=== PATIENT | male | born 1940 | race Caucasian/White ===

== ENCOUNTER → 2018-04-27 17:58 | Outpatient (CLI) | payer MEDICARE, OTHER, SELFPAY ==
--- NOTE | 2018-04-27 18:03 | DI.RAD.S_ITS ---
PROCEDURE: XR HAND RT MIN 3V INDICATIONS: Hand pain, tenderness to 5th metacarpal, proximal to MCP JOINT TECHNIQUE: 3 views of the hand(s) acquired. COMPARISON: None. FINDINGS: Bones: No dislocations. Carpal bones are normally aligned. No suspicious bony lesions. There is a fracture involving the head/neck junction of the fifth metacarpal, best seen on the oblique view, with a fracture plane extending to involve the distal diaphysis of the metacarpal. Soft tissues: No suspicious soft tissue calcifications. IMPRESSION: Acute or subacute fracture involving the fifth metacarpal head/neck junction and tracking proximally along the distal diaphysis. Mild displacement. Dictated by: Matt Rowland M.D. on 04/28/2018 at 10:08 Approved by: Matt Rowland M.D. on 04/28/2018 at 10:19
== END ==
PROVIDERS: PCP Internal Medicine Geriatric Medicine; Visit Provider Physician Assistant
DX: S62.336A Displaced fracture of neck of fifth metacarpal bone, right hand, initial encounter for closed fracture (principal); M79.641 Pain in right hand
CPT/HCPCS: 73130

== ENCOUNTER 2018-10-03 21:53 | Emergency (ER) | payer MEDICARE, OTHER, SELFPAY ==
[2018-10-03 22:05] VITALS: BP 157/90; PULSE 75; RESP 16; TEMP 37.1; O2SAT 99; BMI 24.7
--- NOTE | 2018-10-03 23:07 | PC.NURSE ---
Patient has been seeing sleep doctor since summer and was prescribed melatonin and also takes gabapentin. He recently stopped taking his gabapentin a few days ago. Also began to take over the counter Flonase and Claritin. States he has been unable to sleep for the past 72 hours.
--- NOTE | 2018-10-03 23:08 | ED.GENADULT ---
HPI - General Adult General Chief complaint: Ear Stated complaint: have not slept in 2 nights,ringing of ears Time Seen by Provider: 10/03/18 22:13 Source: patient and family Mode of arrival: ambulatory Limitations: no limitations History of Present Illness HPI narrative: 78-year-old male, nonsmoker with hypertension and hyperlipidemia presents for evaluation of insomnia and ringing in his ears. The patient has had multiple visits and evaluations which started last summer. He went to a sleep specialist in [place] and was started on gabapentin, trazodone, and melatonin. He had had some improvement in his ability to sleep and then about 1 week ago the meds seemed to stop working. He has been complaining of ringing in his ears and visited the walk-in clinic twice and cerumen removal seem to completely resolve his symptoms for a day or 2. States he has not slept in a few days. He denies any alcohol or significant caffeine. He denies any other medication additions but does state that he stopped taking his Neurontin a few days ago, or so he thinks. He denies any dietary change. He has had more stress than normal lately. He did add flonase to his regimen given some recent nasal congestion at the suggestion of his daughter. Onset (ago): month(s) Related Data Home Medications Medication Instructions Recorded Confirmed Fish Oil (#FISH OIL) 1 iu PO Q DAY #0 03/09/12 09/28/18 [VITAMIN D3] Q DAY #0 03/09/12 09/28/18 aspirin 81 mg tablet,delayed 81 mg PO DAILY 04/18/18 09/28/18 release trazodone PO 04/18/18 09/28/18 Lactobac 51-Bifidobac cap PO cap 09/26/18 09/28/18 3-L.lactis-S.thermophilus 4 billion cell capsule gabapentin 400 mg capsule 400 mg PO DAILY 09/26/18 09/28/18 melatonin 3 mg tablet 3 mg PO BEDTIME PRN 09/26/18 09/28/18 pravastatin 20 mg tablet 20 mg PO DAILY 09/26/18 09/28/18 vit C 150 mg-vit E 30 unit-lutein 1 cap PO DAILY 09/26/18 09/28/18 5 ij-rrzquqgl-xhytm 3 150 mg capsule losartan PO 09/28/18 09/28/18 Allergies Allergy/AdvReac Type Severity Reaction Status Date / Time No Known Drug Allergies Allergy Verified 09/28/18 18:01 Review of Systems Review of Systems All systems reviewed & are unremarkable except as noted in HPI and below Constitutional Denies chills, Denies fever(s), Denies lethargy and Denies weakness Eyes Denies change in vision, Denies eye discharge, Denies irritation and Denies loss of vision ENT Ears, Nose, Mouth, and Throat: Denies change in voice, Denies neck pain and Denies sore throat Comments: ringing in ears Cardiovascular Denies chest pain, Denies irregular heart rhythm, Denies lightheadedness, Denies palpitations, Denies dyspnea, Denies dyspnea on exertion and Denies orthopnea Respiratory Denies cough, Denies dyspnea, Denies dyspnea on exertion and Denies wheezing Gastrointestinal Gastrointestinal: Denies abdominal pain, Denies change in bowel habits, Denies diarrhea, Denies nausea and Denies vomiting Genitourinary Denies hematuria, Denies flank pain, Denies urinary incontinence and Denies urinary urgency Musculoskeletal Denies neck pain Integumentary/Breasts Denies pruritus, Denies erythema, Denies rash and Denies wounds Neurologic Denies confusion, Denies loss of vision and Denies weakness Psychiatric Denies anxiety, Denies confusion, Denies depression, Denies homicidal ideation and Denies suicidal ideation Endocrine Denies palpitations Hematologic/Lymphatic Denies easy bruising Allergic/Immunologic Denies wheezing PFSH Social History Smoking Status: Never smoker Exam Narrative Exam Narrative: GEN: AOx3 and in mild distress, anxious ENT: very minimal R ear cerumen in canal. No effusion. TMs B/L normal EYES: Pupils are equal, round, and reactive to light and accommodation. Extraoccular muscles are intact bilaterally. There is no subconjunctival hemorrhage or exudate. CHEST: Lungs are clear to auscultation bilaterally and free of wheezes, rales, or rhonchi. Heart rate is regular rhythm, there are no murmurs, clicks, rubs, or gallops. There is no chest wall tenderness. ABD: Abdomen is soft and nontender. There is no guarding or rebound. Bowel sounds are normal in all 4 quadrants. There is no mass or organomegaly. EXT: Full painless ROM of all extremities with no loss of sensation or strength. SKIN: Warm, pink, and dry. No erythema or rash Initial Vital Signs Initial Vital Signs: Vital Signs Temperature 98.8 F 10/03/18 22:05 Pulse Rate 75 10/03/18 22:05 Respiratory Rate 16 10/03/18 22:05 Blood Pressure 157/90 H 10/03/18 22:05 Pulse Oximetry 99 10/03/18 22:05 Course Orders Ordered: ED Orders 10/03/18 22:55 Basic Metabolic Panel Stat Complete Blood Count AUTO DIFF Stat Free T4 Free Thyroxine Stat Magnesium Stat Pathologist Review (for CBC) Stat Thyroid Stimulating Hormone Stat Vital Signs - 8 hr 10/03/18 22:05 10/04/18 00:09 Temperature 98.8 F Pulse Rate 75 68 Respiratory Rate 16 18 Blood Pressure 157/90 H 151/83 H Pulse Oximetry 99 98 Medical Decision Making Lab Data Result diagrams: 10/03/18 22:55 10/03/18 22:55 Lab Results 10/03/18 10/03/18 10/03/18 Range/Units 22:55 22:55 22:55 WBC 13.4 H (4.5-11.0) X10^3/uL RBC 5.44 (4.5-5.9) X10^6/uL Hgb 15.0 (13.5-17.5) g/dL Hct 45.9 (41-53) % MCV 84.4 (80-100) fL MCH 27.6 (26-34) PG MCHC 32.7 (30-36) % RDW 13.8 (11.6-14.8) % Plt Count 178 (150-400) X10^3/uL Neut % (Auto) Not Reportable Lymph % (Auto) Not Reportable Mckean % (Auto) Not Reportable Eos % (Auto) Not Reportable Baso % (Auto) Not Reportable Seg Neutrophils % 53.0 (38-70) % Band Neutrophils % 1.0 L (3-7) % Lymphocytes % (Manual) 26.0 (25-45) % Atypical Lymphs % 17.0 H ( - 0) % Monocytes % (Manual) 3.0 (2-11) % RBC Morphology See below Ovalocytes 1+ H Sodium 139 (137-145) mmol/L Potassium 3.9 (3.4-5.1) mmol/L Chloride 103 (98-107) mmol/L Carbon Dioxide 27 (22-32) mmol/L BUN 19 (9-20) mg/dL Creatinine 1.00 (0.66-1.25) mg/dL Estimated GFR > 60.0 (>60) mL/min BUN/Creatinine Ratio 19.0 (6-22) Glucose 122 H (80-110) mg/dL Calcium 9.5 (8.4-10.2) mg/dL Magnesium 2.2 (1.6-2.3) mg/dL TSH 0.16 L (0.47-4.68) uIU/mL Free T4 1.11 (0.78-2.19) ng/dL MDM Narrative Medical decision making narrative: likely multiple contributing factors to patients insomnia. Etiologies considered include age, possible early dementia, anxiety. It is unlikely that abrupt cessation of Neurontin a day or two ago is helping. Discussed imaging and labs that may help elucidate. Patient had an MRI in the summer as part of the workup for his tinnitus and insomnia. Additionally he and his PCP discussed stopping his ASA. We did talk about the possible cardiovascular consequences of this. In the end we discussed getting back on Neurontin and consider increasing Melatonin from 3mg to 6mg with close follow up. Discharge Plan Departure Patient Disposition: Home Clinical Impression: Insomnia, Tinnitus Discharge Date/Time: 10/04/18 00:10 Interventions: ED Discharge Assessment Last Done: 10/04/18 00:09 Instructions: DI for Insomnia, DI for Tinnitus Activity Restrictions/Additional Instructions: *You have been diagnosed with [ tinnitus, insomnia] *What to do: *Take medications as directed. Please resume taking your Gabapentin as previously prescribed. Please consider obtaining a pill organizer so as to avoid missing doses of your meds. *Follow up with your primary care provider in 2-3 days, call for an appointment. Let them know you were seen in the Emergency Department and that we ask that you be seen in follow up *Return to ER if you should have any new, worsening or concerning symptoms Prescriptions: No Action aspirin [Aspir-81] 81 mg tablet,delayed release (DR/EC) 81 mg PO DAILY RF: 0 trazodone PO RF: 0 Lacto 51-Bifid 3-L.lact-S.ther [Daily Probiotic (10 Strains)] 4 billion cell capsule PO RF: 0 pravastatin 20 mg tablet 20 mg PO DAILY RF: 0 melatonin 3 mg tablet 3 mg PO BEDTIME PRNRF: 0 vit C-vit F-ziipvw-bkg-om-3 [Ocuvite] 657-37-9-150 gq-gsxm-ku-mg capsule 1 cap PO DAILY RF: 0 gabapentin 400 mg capsule 400 mg PO DAILY RF: 0 losartan PO RF: 0 Fish Oil (#FISH OIL) 1 iu PO Q DAY Qty: 0 RF: 0 [VITAMIN D3] Q DAY Qty: 0 RF: 0 Referrals: Reece Shore MD [Physician] - Shelley Lewis MD [Primary Care Provider] -
[2018-10-03 23:11] LABS: Blood Urea Nitrogen 19 mg/dL (9-20); Calcium 9.5 mg/dL (8.4-10.2); Carbon Dioxide 27 mmol/L (22-32); Chloride 103 mmol/L (98-107); Estimated Glomerular Filt Rate > 60.0 mL/min (>60); Glucose 122 mg/dL (80-110); HEMOLYSIS < 15 (0-50); Magnesium 2.2 mg/dL (1.6-2.3); Potassium 3.9 mmol/L (3.4-5.1); Sodium 139 mmol/L (137-145)
[2018-10-03 23:12] LABS: Add Manual Diff / Slide Review YES; Hematocrit 45.9 % (41-53); Mean Corpuscular HGB Conc 32.7 % (30-36); Mean Corpuscular Hemoglobin 27.6 PG (26-34); Mean Corpuscular Volume 84.4 fL (80-100); Platelet Count 178 X10^3/uL (150-400); Red Blood Cell Count 5.44 X10^6/uL (4.5-5.9); Red Cell Distribution Width 13.8 % (11.6-14.8); White Blood Cell Count 13.4 X10^3/uL (4.5-11.0)
[2018-10-03 23:47] LABS: Free T4, Direct Thyroxine 1.11 ng/dL (0.78-2.19)
[2018-10-04 00:01] LABS: Thyroid Stimulating Hormone 0.16 uIU/mL (0.47-4.68)
[2018-10-04 00:09] VITALS: BP 151/83; PULSE 68; RESP 18; O2SAT 98
[2018-10-04 00:48] LABS: Ovalocytes 1+
== END 2018-10-04 00:10 | disposition home or self-care (01) ==
PROVIDERS: Emergency Provider Emergency Medicine; PCP Internal Medicine Geriatric Medicine
DX: G47.00 Insomnia, unspecified (principal); H93.19 Tinnitus, unspecified ear
CPT/HCPCS: 36415; 80048; 83735; 84439; 84443; 85025; 99282; 99283

== ENCOUNTER → 2018-10-06 11:39 | Outpatient (CLI) | payer MEDICARE, OTHER, SELFPAY ==
[2018-10-06 12:25] LABS: Alanine Aminotransferase 32 IU/L (21-72); Albumin 4.4 g/dL (3.5-5.0); Albumin Globulin Ratio 1.7 (1.0-2.8); Alkaline Phosphatase 55 U/L (38-126); Aspartate Aminotransferase 25 IU/L (17-59); BUN Creatinine Ratio 21.7 (6-22); Bilirubin Total 0.6 mg/dL (0.2-1.3); Blood Urea Nitrogen 26 mg/dL (9-20); Calcium 9.5 mg/dL (8.4-10.2); Carbon Dioxide 30 mmol/L (22-32); Chloride 104 mmol/L (98-107); Cholesterol 136 mg/dL (140-199); Estimated Glomerular Filt Rate 58.3 mL/min (>60); Globulin 2.6 g/dL (1.7-4.1); Glucose 105 mg/dL (80-110); HDL Cholesterol 54 mg/dL (40-60); HEMOLYSIS < 15 (0-50); LDL Cholesterol Calculated 70 mg/dL (<100); Sodium 143 mmol/L (137-145); Triglycerides 60 mg/dL (35-150)
== END ==
PROVIDERS: PCP Internal Medicine Geriatric Medicine; Visit Provider Internal Medicine Cardiovascular Disease
DX: I10 Essential (primary) hypertension (principal)
CPT/HCPCS: 36415; 80053; 80061

== ENCOUNTER 2018-10-10 09:52 | Emergency (ER) | payer MEDICARE, OTHER, SELFPAY ==
[2018-10-10 09:55] VITALS: BP 183/88; PULSE 74; RESP 16; TEMP 36.8; O2SAT 97
--- NOTE | 2018-10-10 11:21 | ED_ITS ---
HPI - Ear Problem General Chief complaint: Ear Stated complaint: UNABLE TO SLEEP,RINGING IN EARS Time Seen by Provider: 10/10/18 11:45 Source: patient Mode of arrival: ambulatory Limitations: no limitations History of Present Illness HPI Narrative: Patient is an 78-year-old male presenting with chronic on going tinnitus and insomnia a been ongoing since September 26. Patient describes tinnitus as constant bilaterally. He has been seen by the walk-in clinic emergency department his primary care physician ENT and has appointment with the embalmer assistant on Friday in 2 days. As he says that the ringing is not any worse it is just persistent he is unable to sleep. He was prescribed Ambien by his PCP but he is afraid to take elevate he is only taking a quarter of a pill. He is not sleeping. He feels like he is delusional. When he was here in the emergency department 10/03/2018 he had blood work done. He does not have a fever he has no other complaints other than not sleeping. He stops taking his blood pressure and cholesterol medication. 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 It was recommended to him that he stop these medications. He has not restarted them. He previously was taking melatonin and trazodone and gabapentin to help him sleep. With out Dr. luna he stopped all medication at once 3 or 4 days ago thinking it might help the tinnitus. It has not. He was only taking gabapentin at night. I discussed with him how gabapentin needs to be tapered down. The patient's biggest complaint is that he is not sleeping. He has no dizziness no lightheadedness no vertigo no chest pain no heart palpitation shortness of breath nausea vomiting or fevers. MD Complaint: other (Tinnitis, insomnia) Related Data Home Medications Medication Instructions Recorded Confirmed Fish Oil (#FISH OIL) 1 iu PO Q DAY #0 03/09/12 09/28/18 [VITAMIN D3] Q DAY #0 03/09/12 09/28/18 aspirin 81 mg tablet,delayed 81 mg PO DAILY 04/18/18 09/28/18 release trazodone PO 04/18/18 09/28/18 Lactobac 51-Bifidobac cap PO cap 09/26/18 09/28/18 3-L.lactis-S.thermophilus 4 billion cell capsule gabapentin 400 mg capsule 400 mg PO DAILY 09/26/18 09/28/18 melatonin 3 mg tablet 3 mg PO BEDTIME PRN 09/26/18 09/28/18 pravastatin 20 mg tablet 20 mg PO DAILY 09/26/18 09/28/18 vit C 150 mg-vit E 30 unit-lutein 1 cap PO DAILY 09/26/18 09/28/18 5 gv-tpeahipe-vtndg 3 150 mg capsule losartan PO 09/28/18 09/28/18 Previous Rx's Medication Instructions Recorded alprazolam [Xanax] 0.5 mg PO BID PRN #10 tab 10/10/18 Allergies Allergy/AdvReac Type Severity Reaction Status Date / Time No Known Drug Allergies Allergy Verified 09/28/18 18:01 Review of Systems Review of Systems ROS Unobtainable: All systems reviewed & are unremarkable except as noted in HPI and below Constitutional Denies chills, Denies fever(s), Denies lethargy and Denies weakness Eyes Denies change in vision, Denies eye discharge, Denies irritation and Denies loss of vision ENT Ears, Nose, Mouth, and Throat: Denies vertigo, Denies dizziness, Denies neck pain, Denies disequilibrium, Reports tinnitus (Bilateral), Denies sinus pain and Denies tongue swelling Cardiovascular Denies chest pain, Denies irregular heart rhythm, Denies lightheadedness, Denies palpitations, Denies dyspnea, Denies dyspnea on exertion and Denies orthopnea Respiratory Denies cough, Denies dyspnea, Denies dyspnea on exertion and Denies wheezing Gastrointestinal Gastrointestinal: Denies abdominal pain, Denies change in bowel habits, Denies diarrhea, Denies nausea and Denies vomiting Genitourinary Denies hematuria, Denies flank pain, Denies urinary incontinence and Denies urinary urgency Musculoskeletal Denies neck pain Integumentary/Breasts Denies pruritus, Denies erythema, Denies rash and Denies wounds Neurologic Denies vertigo, Denies dizziness, Denies loss of vision, Denies disequilibrium and Denies weakness Endocrine Denies palpitations Allergic/Immunologic Denies tongue swelling and Denies wheezing PFSH Medical History Insomnia (Acute) Tinnitus (Acute) Hyperlipidemia (Chronic) Hypertension (Chronic) Social History Smoking Status: Never smoker Exam Initial Vital Signs Initial Vital Signs: Vital Signs Temperature 98.3 F 10/10/18 09:55 Pulse Rate 74 10/10/18 09:55 Respiratory Rate 16 10/10/18 09:55 Blood Pressure 183/88 H 10/10/18 09:55 Pulse Oximetry 97 10/10/18 09:55 GENERAL: Alert elderly male no acute distress alert oriented x3 able to carry on conversation normally CARDIOVASCULAR: peripheral pulses in tact, cap refill <2 sec RESPIRATORY: No respiratory distress, speaks in full sentences without difficulty EXTREMITIES: Normal range of motion, no clubbing or edema. Neurovascularly intact NEUROLOGICAL: Cranial nerves II through XII grossly intact. Normal gait and speech. SKIN: Warm, dry, no petechiae, no rashes or lesions. Psych Appearance: grossly normal Mental Status: mental status grossly normal Speech and Movement: speech and movement normal Mood: congruent mood Affect: normal affect Attitude: cooperative Thought Process: normal Thought Content: normal Judgment: judgment good Course Vital Signs - 8 hr 10/10/18 09:55 Temperature 98.3 F Pulse Rate 74 Respiratory Rate 16 Blood Pressure 183/88 H Pulse Oximetry 97 Medical Decision Making MDM Narrative Medical decision making narrative: Patient does not seem significantly confused or hallucinating due to insomnia. He is frustrated with the ongoing tinnitus but this does not seem to be any worse. He is afebrile no focal deficits. At this time he is appropriate outpatient follow-up. He is given prescription for Xanax to help him sleep. Discharge Plan Departure Patient Disposition: Home Clinical Impression: Insomnia, Tinnitus Discharge Date/Time: 10/10/18 11:58 Interventions: ED Discharge Assessment Last Done: 10/10/18 11:57 Instructions: Insomnia, DI for Tinnitus Activity Restrictions/Additional Instructions: *You have been diagnosed with insomnia, tonight *What to do: Unfortunately there is not much to be done in the emergency department. You have all the appropriate outpatient follow-up on Friday. *Continue to take medications as directed The Xanax 0.5 mg every 12 hr only if needed for sleeping or agitation *Follow up with your primary care provider in 2-3 days *Return to ER if you should have weakness, confusion or any new, worsening or concerning symptoms Prescriptions: New alprazolam [Xanax] 0.5 mg tablet 0.5 mg PO BID PRN (Reason: insomnia) Qty: 10 RF: 0 No Action aspirin [Aspir-81] 81 mg tablet,delayed release (DR/EC) 81 mg PO DAILY RF: 0 trazodone PO RF: 0 Lacto 51-Bifid 3-L.lact-S.ther [Daily Probiotic (10 Strains)] 4 billion cell capsule PO RF: 0 pravastatin 20 mg tablet 20 mg PO DAILY RF: 0 melatonin 3 mg tablet 3 mg PO BEDTIME PRNRF: 0 vit C-vit C-rsujae-fdo-om-3 [Ocuvite] 921-16-3-150 jb-lbvs-rg-mg capsule 1 cap PO DAILY RF: 0 gabapentin 400 mg capsule 400 mg PO DAILY RF: 0 losartan PO RF: 0 Fish Oil (#FISH OIL) 1 iu PO Q DAY Qty: 0 RF: 0 [VITAMIN D3] Q DAY Qty: 0 RF: 0
== END 2018-10-10 11:58 | disposition home or self-care (01) ==
PROVIDERS: Emergency Provider Emergency Medicine; PCP Internal Medicine Geriatric Medicine
DX: G47.00 Insomnia, unspecified (principal); H93.19 Tinnitus, unspecified ear
CPT/HCPCS: 99282

== ENCOUNTER → 2019-02-10 10:07 | Outpatient (CLI) | payer MEDICARE, OTHER, SELFPAY ==
[2019-02-10 11:09] LABS: Alanine Aminotransferase 22 IU/L (21-72); Albumin 4.2 g/dL (3.5-5.0); Albumin Globulin Ratio 1.6 (1.0-2.8); Alkaline Phosphatase 59 U/L (38-126); Aspartate Aminotransferase 25 IU/L (17-59); Bilirubin Total 0.5 mg/dL (0.2-1.3); Blood Urea Nitrogen 19 mg/dL (9-20); Calcium 9.2 mg/dL (8.4-10.2); Carbon Dioxide 30 mmol/L (22-32); Chloride 102 mmol/L (98-107); Cholesterol 125 mg/dL (140-199); Estimated Glomerular Filt Rate > 60.0 mL/min (>60); Globulin 2.6 g/dL (1.7-4.1); Glucose 101 mg/dL (80-110); HDL Cholesterol 53 mg/dL (40-60); HEMOLYSIS < 15 (0-50); LDL Cholesterol Calculated 61 mg/dL (<100); Potassium 4.7 mmol/L (3.4-5.1); Sodium 139 mmol/L (137-145); Total Protein 6.8 g/dL (6.3-8.2); Triglycerides 55 mg/dL (35-150)
== END ==
PROVIDERS: Family Provider Internal Medicine Geriatric Medicine; PCP Internal Medicine Geriatric Medicine; Visit Provider Internal Medicine Cardiovascular Disease
DX: I25.10 Atherosclerotic heart disease of native coronary artery without angina pectoris (principal); I11.0 Hypertensive heart disease with heart failure
CPT/HCPCS: 36415; 80053; 80061

== ENCOUNTER → 2020-06-13 09:45 | Outpatient (CLI) | payer MEDICARE, OTHER, SELFPAY ==
[2020-06-13 10:40] LABS: Alanine Aminotransferase 18 IU/L (<50); Albumin Globulin Ratio 1.6 (1.0-2.8); Alkaline Phosphatase 60 U/L (38-126); Aspartate Aminotransferase 24 IU/L (17-59); BUN Creatinine Ratio 17.1 (6-22); Bilirubin Total 0.5 mg/dL (0.2-1.3); Blood Urea Nitrogen 19 mg/dL (9-20); Calcium 9.3 mg/dL (8.4-10.2); Carbon Dioxide 30 mmol/L (22-32); Chloride 103 mmol/L (98-107); Cholesterol 120 mg/dL (140-199); Estimated Glomerular Filt Rate > 60.0 mL/min (>60); Globulin 2.5 g/dL (1.7-4.1); Glucose 105 mg/dL (80-110); HDL Cholesterol 56 mg/dL (40-60); HEMOLYSIS < 15 (0-50); LDL Cholesterol Calculated 54 mg/dL (<100); Potassium 4.3 mmol/L (3.4-5.1); Sodium 139 mmol/L (137-145); Total Protein 6.5 g/dL (6.3-8.2); Triglycerides 48 mg/dL (35-150)
== END ==
PROVIDERS: Family Provider Internal Medicine Geriatric Medicine; PCP Internal Medicine Geriatric Medicine; Referring Provider Internal Medicine Cardiovascular Disease; Visit Provider Internal Medicine Cardiovascular Disease
DX: I10 Essential (primary) hypertension (principal)
CPT/HCPCS: 36415; 80053; 80061

== ENCOUNTER → 2020-12-13 09:40 | Outpatient (CLI) | payer MEDICARE, OTHER, SELFPAY ==
[2020-12-13 10:50] LABS: Alanine Aminotransferase 24 IU/L (<50); Albumin 4.2 g/dL (3.5-5.0); Albumin Globulin Ratio 1.7 (1.0-2.8); Alkaline Phosphatase 58 U/L (38-126); Aspartate Aminotransferase 30 IU/L (17-59); BUN Creatinine Ratio 17.8 (6-22); Bilirubin Total 0.5 mg/dL (0.2-1.3); Blood Urea Nitrogen 19 mg/dL (9-20); Calcium 9.3 mg/dL (8.4-10.2); Carbon Dioxide 33 mmol/L (22-32); Chloride 104 mmol/L (98-107); Cholesterol 118 mg/dL (140-199); Estimated Glomerular Filt Rate > 60.0 mL/min (>60); Globulin 2.5 g/dL (1.7-4.1); Glucose 109 mg/dL (80-110); HDL Cholesterol 52 mg/dL (40-60); HEMOLYSIS < 15 (0-50); LDL Cholesterol Calculated 56 mg/dL (<100); Potassium 4.3 mmol/L (3.4-5.1); Sodium 139 mmol/L (137-145); Total Protein 6.7 g/dL (6.3-8.2); Triglycerides 51 mg/dL (35-150)
== END ==
PROVIDERS: Family Provider Internal Medicine Geriatric Medicine; PCP Internal Medicine Geriatric Medicine; Referring Provider Internal Medicine Cardiovascular Disease; Visit Provider Internal Medicine Cardiovascular Disease
DX: E78.00 Pure hypercholesterolemia, unspecified (principal); R93.1 Abnormal findings on diagnostic imaging of heart and coronary circulation; I10 Essential (primary) hypertension
CPT/HCPCS: 36415; 80053; 80061

== ENCOUNTER 2021-03-01 19:27 | Emergency (ER) | payer MEDICARE, OTHER, SELFPAY ==
[2021-03-01 20:07] VITALS: BP 160/87; PULSE 76; RESP 16; TEMP 36.7; O2SAT 95; BMI 24.3
--- NOTE | 2021-03-01 20:12 | ED.SKABFB ---
HPI - Skin/Abscess/Foreign Bdy General Chief complaint: Skin/Abscess/Foreign Body Stated complaint: itchy hands from pulling plants Time Seen by Provider: 03/01/21 19:38 Source: patient Mode of arrival: Ambulatory Limitations: no limitations History of Present Illness HPI narrative: 80-year-old male nonsmoker with history of hypertension presents with a chief complaint of bilateral hand stinging, tingling and some itching that has been present over the course of the afternoon. He states that he was pulling some weeds from the drainage and thinks he may have encountered something his skin is irritated by. He did bring a sample for identification. He denies any therapies at home such as Benadryl or an EpiPen. He denies widespread symptoms such as swelling of tongue, lip, throat, trouble swallowing or breathing nor any widespread rash. He states that he has washed his hands multiple time and the warm water makes the tingling worse. Related Data Home Medications Medication Instructions Recorded Confirmed Fish Oil (#FISH OIL) 1 iu PO Q DAY #0 03/09/12 09/28/18 [VITAMIN D3] Q DAY #0 03/09/12 09/28/18 aspirin 81 mg tablet,delayed 81 mg PO DAILY 04/18/18 09/28/18 release trazodone PO 04/18/18 09/28/18 Lactobac 51-Bifidobac cap PO cap 09/26/18 09/28/18 3-L.lactis-S.thermophilus 4 billion cell capsule gabapentin 400 mg capsule 400 mg PO DAILY 09/26/18 09/28/18 melatonin 3 mg tablet 3 mg PO BEDTIME PRN 09/26/18 09/28/18 pravastatin 20 mg tablet 20 mg PO DAILY 09/26/18 09/28/18 vit C 150 mg-vit E 30 unit-lutein 1 cap PO DAILY 09/26/18 09/28/18 5 jc-cddgqkfd-ygazl 3 150 mg capsule losartan PO 09/28/18 09/28/18 Previous Rx's Medication Instructions Recorded alprazolam [Xanax] 0.5 mg PO BID PRN #10 tab 10/10/18 Allergies Allergy/AdvReac Type Severity Reaction Status Date / Time No Known Drug Allergies Allergy Verified 03/01/21 20:07 Review of Systems Review of Systems ROS Unobtainable: All systems reviewed & are unremarkable except as noted in HPI and below Constitutional Constitutional: Denies chills and Denies fever(s) ENT Ears, Nose, Mouth, and Throat: Denies throat swelling Cardiovascular Cardiovascular: Denies chest pain and Denies dyspnea Respiratory Respiratory: Denies dyspnea Gastrointestinal Gastrointestinal: Denies nausea and Denies vomiting Integumentary/Breasts Skin/Breast: Reports erythema and Reports skin pain Hematologic/Lymphatic Hematologic/Lymphatic: Denies easy bruising Allergic/Immunologic Allergic/Immunologic: Denies throat swelling Patient History Medical History Hyperlipidemia Hypertension Insomnia Tinnitus Social History Smoking Status: Never smoker Smoking Status: Never smoker alcohol intake frequency: 0-2 drinks per day Substance Use Type: does not use Exam Narrative Exam Narrative: GEN: AOx3 and in mild distress EYES: Pupils are equal, round, and reactive to light and accommodation. Extraoccular muscles are intact bilaterally. There is no subconjunctival hemorrhage or exudate. CHEST: Lungs are clear to auscultation bilaterally and free of wheezes, rales, or rhonchi. Heart rate is regular rhythm, there are no murmurs, clicks, rubs, or gallops. There is no chest wall tenderness. ABD: Abdomen is soft and nontender. There is no guarding or rebound. Bowel sounds are normal in all 4 quadrants. There is no mass or organomegaly. EXT: Full painless ROM of all extremities with no loss of sensation or strength. SKIN: Warm, pink, and dry. Very minimal erythema noted on hands, no swelling, hives or other Initial Vital Signs Initial Vital Signs: Vital Signs Temperature 98.0 F 03/01/21 20:07 Pulse Rate 76 03/01/21 20:07 Respiratory Rate 16 03/01/21 20:07 Blood Pressure 160/87 H 03/01/21 20:07 Pulse Oximetry 95 03/01/21 20:07 Course Vital Signs Vital signs: Vital Signs - 8 hr 03/01/21 20:07 03/01/21 20:50 Temperature 98.0 F Pulse Rate 76 64 Respiratory Rate 16 20 Blood Pressure 160/87 H 193/95 H Pulse Oximetry 95 97 MDM - Skin/Abscess/Foreign Bdy MDM Narrative Medical decision making narrative: Patient's history, physical exam are most consistent with exposure to metal. He did provide a sample which when compared to examples on the Internet seem most consistent with metal as well. There is no evidence of widespread allergic reaction, no anaphylaxis. Return precautions given and questions answered to his apparent satisfaction Discharge Plan Departure Patient Disposition: Home Clinical Impression: Nettle sting Instructions: Nettle (Alternative Therapy) Activity Restrictions/Additional Instructions: *You have been diagnosed with [contact dermatitis from exposure to natural] *What to do: *Please continue to take your regular medications as directed. Please take yitc-qic-okjuphh antihistamines for itching, consider Benadryl, Zyrtec, Judy or other. You may use mild topicals such as baking soda and water Avoid exposure to hot water as this may make it worse When drying your hands be sure to dad as opposed to rub *Please follow up with your primary care provider in 2-3 days, call for an appointment. Let them know you were seen in the Emergency Department and that we ask that you be seen in follow up. We will electronically transmit a record of today's note if your PCP is in our system *If you do not have a primary care provider please contact the [facility] Resource line at [phone]. They will ask some questions about your medical history and help get you set up with a doctor in the community. *Return to Emergency Department if you should have any new, worsening or concerning symptoms, such as [fever greater than 101 F, shaking chills, worsening pain, persistent vomiting or other bothersome symptoms] Prescriptions: No Action aspirin [Aspir-81] 81 mg tablet,delayed release (DR/EC) 81 mg PO DAILY RF: 0 trazodone PO RF: 0 Lacto 51-Bifid 3-L.lact-S.ther [Daily Probiotic (10 Strains)] 4 billion cell capsule PO RF: 0 pravastatin 20 mg tablet 20 mg PO DAILY RF: 0 melatonin 3 mg tablet 3 mg PO BEDTIME PRNRF: 0 vit C-vit M-beqozt-wjf-om-3 [Ocuvite] 910-60-5-150 ev-zdfc-us-mg capsule 1 cap PO DAILY RF: 0 gabapentin 400 mg capsule 400 mg PO DAILY RF: 0 losartan PO RF: 0 Fish Oil (#FISH OIL) 1 iu PO Q DAY Qty: 0 RF: 0 [VITAMIN D3] Q DAY Qty: 0 RF: 0 alprazolam [Xanax] 0.5 mg tablet 0.5 mg PO BID PRN (Reason: insomnia) Qty: 10 RF: 0 Referrals: Shelley Lewis MD [Primary Care Provider] -
[2021-03-01 20:50] VITALS: BP 193/95; PULSE 64; RESP 20; O2SAT 97
== END 2021-03-01 20:50 | disposition home or self-care (01) ==
PROVIDERS: Emergency Provider Emergency Medicine; Family Provider Internal Medicine Geriatric Medicine; PCP Internal Medicine Geriatric Medicine
DX: T63.791A Toxic effect of contact with other venomous plant, accidental (unintentional), initial encounter (principal)
CPT/HCPCS: 99281

== ENCOUNTER → 2021-06-27 09:54 | Outpatient (CLI) | payer MEDICARE, OTHER, SELFPAY ==
[2021-06-27 11:46] LABS: Alanine Aminotransferase 20 IU/L (<50); Albumin 4.4 g/dL (3.5-5.0); Albumin Globulin Ratio 1.8 (1.0-2.8); Alkaline Phosphatase 57 U/L (38-126); Aspartate Aminotransferase 28 IU/L (17-59); BUN Creatinine Ratio 17.5 (6-22); Bilirubin Total 0.5 mg/dL (0.2-1.3); Blood Urea Nitrogen 17 mg/dL (9-20); Calcium 9.6 mg/dL (8.4-10.2); Carbon Dioxide 33 mmol/L (22-32); Chloride 102 mmol/L (98-107); Cholesterol 139 mg/dL (140-199); Estimated Glomerular Filt Rate > 60.0 mL/min (>60); Globulin 2.4 g/dL (1.7-4.1); Glucose 98 mg/dL (80-110); HDL Cholesterol 57 mg/dL (40-60); HEMOLYSIS < 15 (0-50); LDL Cholesterol Calculated 70 mg/dL (<100); Potassium 4.5 mmol/L (3.4-5.1); Sodium 140 mmol/L (137-145); Total Protein 6.8 g/dL (6.3-8.2); Triglycerides 58 mg/dL (35-150)
== END ==
PROVIDERS: Family Provider Internal Medicine Geriatric Medicine; PCP Internal Medicine Geriatric Medicine; Referring Provider Internal Medicine Cardiovascular Disease; Visit Provider Internal Medicine Cardiovascular Disease
DX: E78.00 Pure hypercholesterolemia, unspecified (principal)
CPT/HCPCS: 36415; 80053; 80061

== ENCOUNTER → 2022-09-28 09:44 | Outpatient (CLI) | payer MEDICARE, OTHER, SELFPAY ==
[2022-09-28 11:55] LABS: Alanine Aminotransferase 24 IU/L (<50); Albumin 4.3 g/dL (3.5-5.0); Albumin Globulin Ratio 1.5 (1.0-2.8); Alkaline Phosphatase 59 U/L (38-126); Aspartate Aminotransferase 29 IU/L (17-59); BUN Creatinine Ratio 18.4 (6-22); Bilirubin Total 0.7 mg/dL (0.2-1.3); Blood Urea Nitrogen 18 mg/dL (9-20); Calcium 9.1 mg/dL (8.4-10.2); Carbon Dioxide 29 mmol/L (22-32); Chloride 103 mmol/L (98-107); Cholesterol 150 mg/dL (140-199); Estimated Glomerular Filt Rate > 60 mL/min (>60); Globulin 2.9 g/dL (1.7-4.1); Glucose 103 mg/dL (80-110); HDL Cholesterol 52 mg/dL (40-60); HEMOLYSIS < 15 (0-50); LDL Cholesterol Calculated 82 mg/dL (<100); Sodium 139 mmol/L (137-145); Total Protein 7.2 g/dL (6.3-8.2); Triglycerides 78 mg/dL (35-150)
[2022-09-28 11:58] LABS: Hematocrit 46.2 % (41-53); Hemoglobin 15.2 g/dL (13.5-17.5); Mean Corpuscular HGB Conc 32.8 % (30-36); Mean Corpuscular Hemoglobin 27.5 PG (26-34); Mean Corpuscular Volume 83.9 fL (80-100); Platelet Count 164 X10^3/uL (150-400); Red Blood Cell Count 5.51 X10^6/uL (4.5-5.9); Red Cell Distribution Width 14.1 % (11.6-14.8); White Blood Cell Count 12.5 X10^3/uL (4.5-11.0)
[2022-09-28 12:01] LABS: Add Manual Diff / Slide Review YES
[2022-09-28 12:26] LABS: Prostate Specific Antigen < 0.064 ng/mL (0.10-4.00)
[2022-09-28 12:27] LABS: TSH w/ Reflex to FT4 0.55 uIU/mL (0.47-4.68)
[2022-09-28 12:42] LABS: Neutrophils Absolute Manual 3750 /uL (3000-5900); RBC Morphology Normal Morphology; Total Cells Counted 100
[2022-09-28 12:44] LABS: Vitamin B12 934 pg/mL (239-931)
[2022-09-28 13:18] LABS: Creatinine Urine Random 275.3 mg/dL
[2022-09-28 13:23] LABS: Microalbumi Creatinin Ratio Ur 8.7 ug/mg CR (<30); Microalbumin Urine Random 2.4 mg/dL (0-1.6)
== END ==
PROVIDERS: Family Provider Internal Medicine Geriatric Medicine; PCP Internal Medicine Geriatric Medicine; Referring Provider Internal Medicine Geriatric Medicine; Visit Provider Internal Medicine Geriatric Medicine
DX: E78.5 Hyperlipidemia, unspecified (principal); I10 Essential (primary) hypertension; Z85.46 Personal history of malignant neoplasm of prostate; Z00.00 Encounter for general adult medical examination without abnormal findings
CPT/HCPCS: 36415; 80053; 80061; 82043; 82570; 82607; 84153; 84443; 85007; 85025

== ENCOUNTER → 2023-09-10 09:56 | Outpatient (CLI) | payer MEDICARE, OTHER, SELFPAY ==
[2023-09-10 10:41] LABS: Hematocrit 43.6 % (41-53); Hemoglobin 14.3 g/dL (13.5-17.5); Mean Corpuscular HGB Conc 32.8 % (30-36); Mean Corpuscular Hemoglobin 27.3 PG (26-34); Mean Corpuscular Volume 83.3 fL (80-100); Platelet Count 185 X10^3/uL (150-400); Red Blood Cell Count 5.23 X10^6/uL (4.5-5.9); Red Cell Distribution Width 13.8 % (11.6-14.8); White Blood Cell Count 13.1 X10^3/uL (4.5-11.0)
[2023-09-10 11:09] LABS: Alanine Aminotransferase 19 IU/L (<50); Albumin 4.1 g/dL (3.5-5.0); Albumin Globulin Ratio 1.6 (1.0-2.8); Alkaline Phosphatase 54 U/L (38-126); Aspartate Aminotransferase 25 IU/L (17-59); BUN Creatinine Ratio 19.7 (6-22); Bilirubin Total 0.8 mg/dL (0.2-1.3); Blood Urea Nitrogen 23 mg/dL (9-20); Calcium 9.6 mg/dL (8.4-10.2); Carbon Dioxide 28 mmol/L (22-32); Chloride 105 mmol/L (98-107); Cholesterol 119 mg/dL (140-199); Estimated Glomerular Filt Rate > 60 mL/min (>60); Globulin 2.5 g/dL (1.7-4.1); Glucose 106 mg/dL (80-110); HDL Cholesterol 55 mg/dL (40-60); HEMOLYSIS < 15 (0-50); LDL Cholesterol Calculated 54 mg/dL (<100); Potassium 4.5 mmol/L (3.4-5.1); Sodium 138 mmol/L (137-145); Total Protein 6.6 g/dL (6.3-8.2); Triglycerides 49 mg/dL (35-150)
== END ==
PROVIDERS: Family Provider Internal Medicine Geriatric Medicine; PCP Internal Medicine Geriatric Medicine; Referring Provider Internal Medicine Cardiovascular Disease; Visit Provider Internal Medicine Cardiovascular Disease
DX: Z79.02 Long term (current) use of antithrombotics/antiplatelets (principal); R73.09 Other abnormal glucose; I10 Essential (primary) hypertension; E78.00 Pure hypercholesterolemia, unspecified
CPT/HCPCS: 36415; 80053; 80061; 83036; 85027

== ENCOUNTER → 2024-03-05 09:52 | Outpatient (CLI) | payer MEDICARE, OTHER, SELFPAY ==
[2024-03-05 10:59] LABS: Alanine Aminotransferase 15 IU/L (<50); Albumin 4.1 g/dL (3.5-5.0); Alkaline Phosphatase 58 U/L (38-126); Aspartate Aminotransferase 23 IU/L (17-59); BUN Creatinine Ratio 16.8 (6-22); Bilirubin Total 0.7 mg/dL (0.2-1.3); Blood Urea Nitrogen 18 mg/dL (9-20); Calcium 9.1 mg/dL (8.4-10.2); Carbon Dioxide 27 mmol/L (22-32); Chloride 107 mmol/L (98-107); Cholesterol 130 mg/dL (140-199); Estimated Glomerular Filt Rate > 60 mL/min (>60); Globulin 2.1 g/dL (1.7-4.1); Glucose 115 mg/dL (80-110); HDL Cholesterol 64 mg/dL (40-60); HEMOLYSIS < 15 (0-50); LDL Cholesterol Calculated 56 mg/dL (<100); Potassium 4.5 mmol/L (3.4-5.1); Sodium 138 mmol/L (137-145); Total Protein 6.2 g/dL (6.3-8.2); Triglycerides 49 mg/dL (35-150)
== END ==
LOC: LAB 09:53
PROVIDERS: Family Provider Internal Medicine Geriatric Medicine; PCP Internal Medicine Geriatric Medicine; Referring Provider Internal Medicine Cardiovascular Disease; Visit Provider Internal Medicine Cardiovascular Disease
DX: I10 Essential (primary) hypertension (principal)
CPT/HCPCS: 36415; 80053; 80061

== ENCOUNTER → 2024-10-09 15:18 | Outpatient (CLI) | payer MEDICARE, OTHER, SELFPAY ==
[2024-10-09 16:08] LABS: Influenza A - CEPHEID Flu A POSITIVE (NEGATIVE); Influenza B - CEPHEID Flu B NEGATIVE (NEGATIVE); Respiratory Syncytial Virus Negative (Negative)
[2024-10-09 16:29] LABS: COVID-19 CEPHEID 4-PLEX PCR Negative (Negative)
== END ==
PROVIDERS: Family Provider Internal Medicine Geriatric Medicine; PCP Internal Medicine Geriatric Medicine; Visit Provider Physician Assistant
DX: J02.9 Acute pharyngitis, unspecified (principal); R05.1 Acute cough
CPT/HCPCS: 0241U; 87070